=== PATIENT | male | born 2000 | race African-American/Black ===

== ENCOUNTER 2021-06-09 09:10 | Emergency (ER) | payer MEDICAID, OTHER ==
[~2021-06-09] VITALS: Ht 177.8 cm; Wt 75.0 kg
[2021-06-09 09:20] VITALS: BP 131/63
== END 2021-06-09 11:46 | disposition home or self-care (01) ==
LOC: ER 09:10
DX: Z13.9 Encounter for screening, unspecified (principal)
CPT/HCPCS: 99281